=== PATIENT | female | born 1950 | race Caucasian/White ===

== ENCOUNTER 2019-12-13 12:49 | Outpatient (CLI) | payer MEDICARE, SELFPAY ==
--- NOTE | ~2019-12-13 | CT_ITS ---
EXAMINATION: CTA brain carotid EXAM DATE: 12/13/2019 13:32 INDICATION: Visual disturbance. TECHNIQUE: Noncontrast head CT. Spiral CTA of the carotid arteries was performed with intravenous i njection 100 cc of Omnipaque 350. Axial, coronal, sagittal reformatted images reviewed. Additional r eformatted images created on dedicated 3-D workstation. NASCET comparable standard used to assess th e degree of arterial stenosis. Spiral CT angiogram cerebral arteries performed with the same intrave nous injection of contrast. Source images of the brain CTA transferred to dedicated workstation for 3 -D rotational image creation. Coronal, sagittal maximum intensity pixel images also reviewed. The d ose-length product (DLP) for this examination was 1442.65 mGy-cm. The exposure was tailored accordi ng to patient size, and iterative reconstruction (ASIR) was used as additional dose reduction techniq ue. Correlation is made to head CT 10/01/2019. FINDINGS: There is no carotid bulb plaque or stenosis. The vertebral arteries are codominant. There is no carotid or vertebral basilar arterial dissection or fibromuscular dysplasia. There are no cereb ral artery aneurysms. There is symmetric cerebral artery arborization. The sagittal, transverse and s igmoid sinuses enhance normally, no venous sinus thrombosis. Internal cerebral veins also enhance nor adan. There is no acute intraparenchymal hemorrhage. No evidence of intraparenchymal brain mass lesion. N o evidence of acute infarction. There is mild periventricular and subcortical hypodensity, nonspecifi c but probably related to small vessel ischemic disease. There is moderate prominence of the sulci and ventricles related to cerebral atrophy. There is intracranial carotid arteriosclerosis. There is no mass effect or midline shift. There is no obstructive hydrocephalus suspected. There are no e xtra-axial collections. There are no calvarial acute fractures. The patient has had bilateral lens s urgery. Mild mucoperiosteal thickening. Incidental note made of right cerebellar developmental venous anomaly, not a clinically significant f inding. No other areas of abnormal enhancement. There is some cervical arthropathy. IMPRESSION: 1. No acute findings or cerebral artery aneurysm. 2. Incidental right cerebellar DVA. 3. Other chronic findings. Reviewed, dictated and finalized at location A. ERADISH MAKER
[2019-12-13 13:21] LABS: Blood Urea Nitrogen 17 mg/dL (8-26); Estimated Glomerular Filt Rate > 60
== END 2019-12-13 12:50 | disposition home or self-care (01) ==
LOC: ANHIMG 12:54
PROVIDERS: PCP Internal Medicine; Visit Provider Psychiatry & Neurology Neurology
DX: H53.9 Unspecified visual disturbance (principal); R93.0 Abnormal findings on diagnostic imaging of skull and head, not elsewhere classified
CPT/HCPCS: 70496; 70498; Q9967

== ENCOUNTER 2020-08-11 20:15 | Emergency (ER) | payer MEDICARE, SELFPAY ==
[2020-08-11 20:28] VITALS: BP 177/93; PULSE 81; RESP 18; TEMP 36.7; O2SAT 100
--- NOTE | 2020-08-11 20:37 | ECG_ITS ---
Measurements Intervals [place] Rate: 78 P: 68 HI: 160 QRS: 36 QRSD: 86 T: 47 QT: 364 QTc: 417 Interpretive Statements SINUS RHYTHM POSSIBLE LEFT ATRIAL ENLARGEMENT BORDERLINE ST ABNORMALITY- ANTEROLATERAL LEADS BASELINE ARTIFACT- I, III, AVR, V4-V5 BORDERLINE ECG Electronically Signed On 08-12-2020 6:39:10 CDT by Amadeo Antoine D.O.
[2020-08-11 20:56] LABS: Basophils Percent Auto 0.5 % (0.2-1.2); Eosinophils Absolute Auto 0.1 K/mm3 (0-0.3); Eosinophils Percent Auto 1.8 % (0-4.4); Hematocrit 34.8 % (37.0-47.0); Hemoglobin 11.8 g/dL (12.0-15.0); Immature Granulocyte Absolute 0.02 K/mm3 (0.00-0.031); Immature Granulocyte Percent A 0.3 % (0-0.5); Lymphocytes Absolute Auto 1.78 K/mm3 (0.9-3.2); Lymphocytes Percent Auto 24.3 % (18.3-44.2); Mean Corpuscular HGB Conc 33.9 g/dl (32-36); Mean Corpuscular Hemoglobin 33.1 pg (26-34); Mean Corpuscular Volume 97.5 fl (80-100); Mean Platelet Volume 9.5 fl (7.4-10.4); Monocytes Absolute Auto 0.6 K/mm3 (0.1-0.6); Monocytes Percent Auto 7.8 % (2.6-8.5); Neutrophils Absolute Auto 4.8 K/mm3 (1.3-6.7); Neutrophils Percent Auto 65.3 % (45.5-73.1); Platelet Count Result 253 k/mm3 (150-375); Red Blood Count 3.57 M/mm3 (4.2-5.4); White Blood Count 7.3 K/mm3 (4.5-10.0)
[2020-08-11 21:08] LABS: Anion Gap 8 mmol/L (8-16); Blood Urea Nitrogen 15 mg/dL (7-17); Calcium 9.3 mg/dL (8.4-10.2); Carbon Dioxide 29 mmol/L (22-30); Chloride 99 mmol/L (98-107); Estimated Glomerular Filt Rate 55; Glucose 115 mg/dL (65-105); Potassium 3.7 mmol/L (3.4-5.0); Sodium 136 mmol/L (137-145)
[2020-08-11 21:37] VITALS: BP 138/75; PULSE 75; RESP 16; O2SAT 97
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
[2020-08-11 22:19] VITALS: BP 125/76; PULSE 69; RESP 16; O2SAT 98
== END 2020-08-11 22:45 | disposition home or self-care (01) ==
PROVIDERS: Emergency Provider Emergency Medicine; PCP Internal Medicine
DX: R56.9 Unspecified convulsions (principal); R03.0 Elevated blood-pressure reading, without diagnosis of hypertension; D64.9 Anemia, unspecified; J45.909 Unspecified asthma, uncomplicated; J43.9 Emphysema, unspecified; K21.9 Gastro-esophageal reflux disease without esophagitis; M81.0 Age-related osteoporosis without current pathological fracture; Z87.440 Personal history of urinary (tract) infections; I34.1 Nonrheumatic mitral (valve) prolapse; R94.31 Abnormal electrocardiogram [ECG] [EKG]
CPT/HCPCS: 36415; 80048; 85025; 93005; 99284

== ENCOUNTER → 2020-10-13 12:19 | Outpatient (CLI) | payer MEDICARE, SELFPAY ==
--- NOTE | ~2020-10-13 | US_ITS ---
EXAMINATION: US thyroid DATE: 10/13/2020 13:06 INDICATION: Thyroid nodule TECHNIQUE: Multiple ultrasound images of the thyroid were obtained. COMPARISON: 05/21/2013 FINDINGS: The right thyroid lobe measures 4.3 x 2.0 x 1.7 cm. The left thyroid lobe measures 3.9 x 1.7 x 1.0 c m. 1.3 cm wider than tall mixed solid and cystic hypoechoic nodule with smooth margins and without ec hogenic foci in the inferomedial right thyroid lobe (TI-RADS 3, mildly suspicious , FNA if >=2.5 cm, annual followup is >1.5 cm). 8 mm wider than tall solid isoechoic nodule with ill-defined margins in the right thyroid, also TI RADS 3. 1.1 cm wider than tall solid hypoechoic nodule with ill-defined ma rgins and without echogenic foci (TI-RADS 4, moderately suspicious , FNA if >=1.5 cm, annual followup is >1 cm) . IMPRESSION: 1. Multinodular goiter. Recommend annual follow-up for the 1.1 cm TI RADS 4 left thyroid nodule. Reviewed, dictated and finalized at location A. TENDER BAGELS IMPRESSION: 1. Multinodular goiter. Recommend annual follow-up for the 1.1 cm TI RADS 4 lef t thyroid nodule.
== END ==
PROVIDERS: PCP Internal Medicine; Visit Provider Internal Medicine
DX: E04.2 Nontoxic multinodular goiter (principal)
CPT/HCPCS: 76536

== ENCOUNTER 2021-05-27 09:51 | Outpatient (CLI) | payer MEDICARE, SELFPAY ==
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
== END 2021-05-27 09:52 | disposition home or self-care (01) ==
LOC: ANHIMG 09:54
PROVIDERS: PCP Internal Medicine; Visit Provider Internal Medicine
DX: Z78.0 Asymptomatic menopausal state (principal); M81.0 Age-related osteoporosis without current pathological fracture; M85.852 Other specified disorders of bone density and structure, left thigh; M85.851 Other specified disorders of bone density and structure, right thigh
CPT/HCPCS: 77080

== ENCOUNTER 2022-06-16 11:43 | Emergency (ER) | payer MEDICARE, SELFPAY ==
--- NOTE | ~2022-06-16 | XR_ITS ---
EXAMINATION: XR chest 2V 06/16/2022 12:45 INDICATION: Chest pain. PROCEDURE: PA and lateral views of the chest COMPARISON: Comparison to multiple prior studies sequentially, with oldest reviewed study dated 01/2005. FINDINGS: The lungs are clear. The cardiomediastinal silhouette is within normal limits. There are no pleural effusions. There is no pneumothorax suspected. There is dextroscoliosis of the thoracic spine. IMPRESSION: 1: NO ACUTE CARDIOPULMONARY DISEASE. Reviewed, dictated and finalized at location A.
[2022-06-16 11:55] VITALS: BP 168/89; PULSE 75; RESP 19; TEMP 36.7; O2SAT 100
--- NOTE | 2022-06-16 11:55 | ECG_ITS ---
Measurements Intervals [place] Rate: 73 P: 51 CO: 157 QRS: 11 QRSD: 86 T: 31 QT: 381 QTc: 420 Interpretive Statements SINUS RHYTHM COMPARED TO ECG 08/11/2020 20:38:29 NO SIGNIFICANT CHANGES Electronically Signed On 06-16-2022 18:32:07 CDT by Rocio John M.D.
--- NOTE | 2022-06-16 12:12 | PC.NURSE ---
Pt okay with blood work but refused IV at this time. Pt reports she does not do IV's. Provider aware.
[2022-06-16 12:25] LABS: Basophils Percent Auto 0.4 % (0.2-1.2); Eosinophils Absolute Auto 0.1 K/mm3 (0-0.3); Eosinophils Percent Auto 1.8 % (0-4.4); Hematocrit 36.4 % (37.0-47.0); Immature Granulocyte Absolute 0.02 K/mm3 (0.00-0.031); Immature Granulocyte Percent A 0.4 % (0-0.5); Lymphocytes Absolute Auto 1.56 K/mm3 (0.9-3.2); Lymphocytes Percent Auto 28.2 % (18.3-44.2); Mean Corpuscular Hemoglobin 31.6 pg (26-34); Mean Corpuscular Volume 95.8 fl (80-100); Mean Platelet Volume 9.3 fl (7.4-10.4); Monocytes Absolute Auto 0.5 K/mm3 (0.1-0.6); Monocytes Percent Auto 8.5 % (2.6-8.5); Neutrophils Absolute Auto 3.4 K/mm3 (1.3-6.7); Neutrophils Percent Auto 60.7 % (45.5-73.1); Platelet Count Result 270 k/mm3 (150-375); Red Cell Distribution Width 12.7 % (11.5-14.5); White Blood Count 5.5 K/mm3 (4.5-10.0)
--- NOTE | 2022-06-16 12:28 | ED.SOB ---
HPI - SOB/Dyspnea General Chief Complaint: Shortness of Breath/Dyspnea Stated Complaint: reaction to cipro? Time Seen by Provider: 06/16/22 11:46 History of Present Illness HPI Narrative: 71-year-old female presents to the emergency room for evaluation of possible allergic reaction to Cipro. Patient states that she was diagnosed with urinary tract infection 5 days ago and has been taking Cipro twice daily. States that last night she developed a rash around her mouth, feelings of generalized fatigue and malaise, chest pain and shortness of breath. States that she has been wheezing. History of asthma but does not take a rescue inhaler. Related Data Home Medications Medication Instructions Recorded Confirmed Singulair 10 mg PO DAILY 10/01/19 07/22/21 Bacillus coagulans 250 million cell PO 07/22/21 07/22/21 cell chewable tablet (Digestive Advantage Probiotic Gummy) cholecalciferol (vitamin D3) 125 125 mcg PO DAILY 07/22/21 07/22/21 mcg (5,000 unit) capsule cholestyramine-aspartame 4 gram PO .prn 07/22/21 07/22/21 oral powder cranberry 500 mg capsule 500 mg PO BID 07/22/21 07/22/21 d-mannose ea PO DAILY 07/22/21 07/22/21 eslicarbazepine 400 mg tablet 400 mg PO DAILY 07/22/21 07/22/21 (Aptiom) fexofenadine 180 mg tablet 180 mg PO DAILY 07/22/21 07/22/21 levetiracetam 250 mg tablet 250 mg PO Q12H 07/22/21 07/22/21 (Keppra) montelukast 10 mg tablet 10 mg PO QHS 07/22/21 07/22/21 (Singulair) vitamin B complex (B 1 tablet PO DAILY 07/22/21 07/22/21 Complex-Vitamin B12 tablet) Allergies Allergy/AdvReac Type Severity Reaction Status Date / Time codeine Allergy Mild VOMIT Verified 06/16/22 12:00 erythromycin base Allergy Mild VOMIT Verified 06/16/22 12:00 meperidine Allergy Mild VOMIT Verified 06/16/22 12:00 Penicillins Allergy Mild Swelling Verified 06/16/22 12:00 AND VOMIT propoxyphene Allergy Mild VOMIT Verified 06/16/22 12:00 Sulfa (Sulfonamide Allergy Mild TONGUE Verified 06/16/22 12:00 Antibiotics) URVASHI Review of Systems Review of Systems: CONSTITUTIONAL: Denies fever, chills, or sweats. EYES: Denies visual changes, redness, or discharge. ENT: Denies rhinorrhea, congestion, sore throat, or otalgia. CARDIOVASCULAR: Reports chest pain RESPIRATORY: Reports shortness of breath GASTROINTESTINAL: Denies abdominal pain, nausea, vomiting, or diarrhea. GENITOURINARY: Denies dysuria or hematuria. SKIN: Reports rash MUSCULOSKELETAL: Denies back pain, joint pain, or myalgia. NEUROLOGIC: Denies headache, numbness, dizziness, or weakness. PSYCHIATRIC: Denies anxiety or depression. [facility] Past Medical History Medical History Anemia Asthma Bronchitis DDD (degenerative disc disease) Emphysema, unspecified Encephalomalacia Endometriosis GERD (gastroesophageal reflux disease) GI bleed Heart murmur History of angina History of sarcoma MVP (mitral valve prolapse) Osteoporosis Pneumonia UTI (urinary tract infection) Surgical History Surgical History History of appendectomy History of bladder surgery History of dilation and curettage History of hysterectomy History of partial colectomy History of tonsillectomy Hx of tubal ligation Family History Family History Father History of blood clots Acute myocardial infarction Congestive heart failure Diabetes mellitus Hypertension Sibling Asthma Hypertension Sibling Cerebrovascular accident Hypertension Sibling Hypertension Mother Hypertension Dementia Social History Social History Smoking status: Former smoker Alcohol intake: never Substance use: unknown Gender identity (if verbalized by the patient): Female Spiritual care concerns: No Agree to blood products: Yes Exam Narrative: GENERAL: W
[2022-06-16 12:37] LABS: Alanine Aminotransferase 20 U/L (6-35); Albumin Level 4.3 g/dL (3.5-5.1); Alkaline Phosphatase 94 U/L (38-126); Anion Gap 10 mmol/L (8-16); Aspartate Amino Transferase 28 U/L (14-36); Bilirubin,Total 0.4 mg/dL (0.2-1.3); Blood Urea Nitrogen 16 mg/dL (7-17); Calcium 8.8 mg/dL (8.4-10.2); Carbon Dioxide 22 mmol/L (22-30); Chloride 94 mmol/L (98-107); Estimated CRCL calculation 49 ml/min; Estimated Glomerular Filt Rate > 60; Glucose 105 mg/dL (65-110); Potassium 3.6 mmol/L (3.4-5.0); Sodium 126 mmol/L (137-145)
[2022-06-16 12:48] LABS: Appearance Urine Clear (Clear); Bilirubin Urine Negative (Negative); Blood Urine Negative (Negative); Color Urine Yellow (Yellow); Glucose Urine UA Negative (Negative); Ketones Urine Negative (Negative); Leukocyte Esterase Ur Negative LEU/UL (Negative); Nitrate Urine Negative (Negative); Protein Urine Negative (Negative); Specific Grav Ur >= 1.030 (1.001-1.035); Urobilinogen Urine 0.2 mg/dL (<2.0)
[2022-06-16 12:48] LABS: Troponin I < 0.012 ng/mL (0.000-0.034)
[2022-06-16 12:53] LABS: D Dimer 0.42 ug/mL (<0.48)
[2022-06-16] MEDS: SODIUM CHLORIDE 0.9% IV 1,000 ML 999 ML IV CONT (13:35)
[2022-06-16 13:40] LABS: Add Urine Microscopic? NO
[2022-06-16 15:14] LABS: Anion Gap 7 mmol/L (8-16); Blood Urea Nitrogen 14 mg/dL (7-17); Calcium 8.3 mg/dL (8.4-10.2); Carbon Dioxide 23 mmol/L (22-30); Chloride 97 mmol/L (98-107); Estimated CRCL calculation 49 ml/min; Estimated Glomerular Filt Rate > 60; Glucose 91 mg/dL (65-110); Potassium 3.7 mmol/L (3.4-5.0); Sodium 127 mmol/L (137-145)
[2022-06-16 16:21] VITALS: BP 158/66; PULSE 72; RESP 16; O2SAT 99
== END 2022-06-16 16:23 | disposition home or self-care (01) ==
PROVIDERS: Emergency Provider Nurse Practitioner Family; PCP Internal Medicine
DX: R06.02 Shortness of breath (principal); E87.1 Hypo-osmolality and hyponatremia; J43.9 Emphysema, unspecified; J45.909 Unspecified asthma, uncomplicated; D64.9 Anemia, unspecified; I34.1 Nonrheumatic mitral (valve) prolapse; K21.9 Gastro-esophageal reflux disease without esophagitis; M81.0 Age-related osteoporosis without current pathological fracture; Z87.01 Personal history of pneumonia (recurrent); Z90.49 Acquired absence of other specified parts of digestive tract; Z90.710 Acquired absence of both cervix and uterus; Z87.891 Personal history of nicotine dependence
CPT/HCPCS: 36415; 71046; 80048; 80053; 81003; 84484; 85025; 85380; 93005; 96360; 99283; J7030

== ENCOUNTER → 2023-06-15 10:03 | Outpatient (CLI) | payer MEDICARE, SELFPAY ==
--- NOTE | ~2023-06-15 | US_ITS ---
EXAMINATION: US thyroid DATE: 06/15/2023 10:26 INDICATION: Nontoxic multinodular goiter. TECHNIQUE: Multiple ultrasound images of the thyroid were obtained. COMPARISON: Ultrasound 10/13/2020, 05/22/2013 FINDINGS: The right thyroid lobe measures 4.8 x 1.9 x 1.5 cm. The left thyroid lobe measures 4.2 x 1.3 x 1.1 c m. The thyroid demonstrates coarsened echotexture and increased vascularity. In the left thyroid lob e, there is a 13 mm solid, hypoechoic, wider than tall nodule with ill-defined margin without echogen ic foci (TI-RADS TR4), stable from 05/22/13. In the right thyroid lobe, there is a 9 mm solid, isoecho ic, wider than tall nodule with ill-defined margin without echogenic foci (TR3). In the right thyroid lobe, there is a 12 mm solid, isoechoic, wider than tall nodule with ill-defined margin without echo genic foci (TR3). In the right thyroid lobe, there is a 21 mm solid, hypoechoic, wider than tall nodu le with ill-defined margin without echogenic foci (TR4), stable from 05/22/13. IMPRESSION: 1. Multinodular goiter, likely not clinically significant. No follow-up is needed. Reviewed, dictated and finalized at location A. IMPRESSION: 1. Multinodular goiter, likely not clinically significant. No follow-up is need ed.
== END ==
PROVIDERS: PCP Internal Medicine; Visit Provider Internal Medicine
DX: E04.2 Nontoxic multinodular goiter (principal)
CPT/HCPCS: 76536